=== PATIENT | female | born 2000 | race Hispanic/Latino ===

== ENCOUNTER 2023-05-08 16:15 | Day surgery (SDC) | payer OTHER ==
[2023-05-08 16:47] VITALS: BMI 37.8
[2023-05-08] MEDS ORDERED: hydrALAZINE 20 MG/ML VIAL SLOW IVP PRN (17:28)
== END 2023-05-08 20:22 | disposition home or self-care (01) ==
LOC: CSHLD/OP 16:15
PROVIDERS: ATTEND Family Medicine
DX: O9A.213 Injury, poisoning and certain other consequences of external causes complicating pregnancy, third trimester (principal); O99.013 Anemia complicating pregnancy, third trimester; D50.9 Iron deficiency anemia, unspecified; O99.343 Other mental disorders complicating pregnancy, third trimester; F41.9 Anxiety disorder, unspecified; F32.9 Major depressive disorder, single episode, unspecified; Z79.82 Long term (current) use of aspirin; Z79.899 Other long term (current) drug therapy; Z3A.30 30 weeks gestation of pregnancy; W19.XXXA Unspecified fall, initial encounter
CPT/HCPCS: 76815; 99281